=== PATIENT | male | born 1980 | race Caucasian/White ===

== ENCOUNTER 2019-11-21 15:31 | Emergency (ER) | payer MEDICAID ==
[~2019-11-21] VITALS: Ht 188 cm; Wt 81.6 kg
[2019-11-21 15:35] VITALS: BP_SYST 134
--- NOTE | 2019-11-21 15:35 | NUR ---
Patient to ER bed [employer] to gown for evaluation. Side rails up.
--- NOTE | 2019-11-21 15:38 | NUR ---
PT AAO AND AMBULATORY BIB [employer] FOR MEDICAL CLEARANCE. PT REPORTS H/O STAPH INFECTIONS AND HAS WOUNDS ON RIGHT HAND, ARM, AND FACE.
--- NOTE | 2019-11-21 15:39 | NUR ---
ER Dr. RODRÍGUEZ at bedside examining patient.
[2019-11-21 15:51] VITALS: BP_SYST 134
--- NOTE | 2019-11-21 15:52 | NUR ---
Patient given written and verbal discharge instructions and verbalizes understanding. ER MD discussed with patient the results and treatment provided. Patient in stable condition. ID arm band removed. Rx of Bactrim given. Patient educated on pain management and to follow up with PMD. Pain Scale 0/10 . Opportunity for questions provided and answered. Medication side effect fact sheet provided.
== END 2019-11-21 15:52 ==
LOC: SED 15:31
DX: L03.119 Cellulitis of unspecified part of limb (principal)
CPT/HCPCS: 99283